=== PATIENT | male | born 1975 | race Caucasian/White ===

== ENCOUNTER 2016-07-15 05:33 | Day surgery (SDC) | payer OTHER ==
[~2016-07-15] VITALS: Ht 180.3 cm; Wt 83.9 kg
[2016-07-15] MEDS ORDERED: BENADRYL25 MG PO (07:53)
[2016-07-15] MEDS ORDERED: FLUTICASONE PRO16 GM NASAL (07:53)
[2016-07-15] MEDS ORDERED: FLOMAX0.4 MG PO (07:53)
[2016-07-15 07:59] VITALS: BP 102/71; Ht 180.3 cm; Wt 83.9 kg
[2016-07-15 08:01] LABS: HEMATOCRIT 41.7 % (42.0-54.0); HEMOGLOBIN 13.9 g/dL (13.5-17.5); MCH 31.7 pg (26.0-34.0); MCHC 33.3 g/dL (31.0-37.0); MEAN PLATELET VOLUME 9.9 fL (7.4-10.4); RBC 4.39 10x6/uL (4.20-6.10); WBC 4.9 10x3/uL (4.8-10.8)
[2016-07-15 08:24] LABS: APTT 30.5 SECONDS (22.8-39.4); INR 1.12 (0.85-1.17); PROTIME 14.3 SECONDS (11.6-15.0)
[2016-07-15 08:32] LABS: ALBUMIN 3.8 g/dL (3.4-5.0); ALKALINE PHOSPHATASE 88 U/L (46-116); ALT (SGPT) 199 U/L (10-68); BILIRUBIN - TOTAL 0.92 mg/dL (0.2-1.3); CALC OSMOLALITY 280 mosm/kg (275-300); CALCIUM 8.8 mg/dL (8.5-10.1); CARBON DIOXIDE 29.9 mmol/L (21.0-32.0); CHLORIDE - SERUM 105 mmol/L (98-107); CREATININE - SERUM 1.1 mg/dL (0.6-1.3); PROTEIN - SERUM 7.3 g/dL (6.4-8.2); SODIUM 142 mmol/L (136-145); UREA NITROGEN 12 mg/dL (7-18); eGFR NON AFRICAN AMERICAN 78 mL/min (90-120)
[2016-07-15 08:34] LABS: GLUCOSE 70 mg/dL (74-106)
[2016-07-15] MEDS ORDERED: HYDROCODONE-APA1 TAB PO (10:07)
--- NOTE | 2016-07-15 19:06 | NUR ---
1255 DRESSED. GIVEN DISCHARGE INSTRUCTION INFO PAACKET INCLUDING RX: NORCO 10/325MG, MED REC., D/C INSTRUCTIONS. CLINIC CLOSED FOR LUNCH UNABLE TO OBTAIN APPT. INFORMED ADC WILL NEED TO CALL TO GET A FOLLOW UP APPT. FOR PT. PT & GUARD VOICED UNDERSTANDING. TO ADC VAN PER WHEELCHAIR BY THIS NURSE. Petrona VIERA R.N.
--- NOTE | 2016-07-16 16:52 | OP ---
PATIENT NAME: ROBERTO COLON MEDICAL RECORD: [id number] :73 LOCATION:D.OPS ADMISSION DATE: SURGEON: NETO STEPHEN MD DATE OF OPERATION: 07/15/2016 Orthopedic Surgery Operative Note PREOPERATIVE DIAGNOSIS: Lisfranc injury to the left foot. POSTOPERATIVE DIAGNOSIS: Lisfranc injury to the left foot. PROCEDURE: Lisfranc ligament reconstruction. SURGEON: Neto Stephen MD ANESTHESIA: General. INTRAOPERATIVE COMPLICATIONS: None. SUMMARY OF PATHOLOGIC FINDINGS: The patient had definite widened interspace consistent with Lisfranc ligament tear. IMPLANTS USED: Arthrex syndesmosis repair system. OPERATIVE SUMMARY IN DETAIL: After obtaining the appropriate preoperative orthopedic surgery consent as well as anesthetic consultation and clearance, the patient was brought to the operating room and placed on the operating table in supine position. After general laryngeal mask was administered, tourniquet was placed about the proximal aspect of the left lower extremity. Left lower extremity was then prepped and draped in routine sterile fashion. The leg was elevated and exsanguinated, tourniquet inflated to 350 mmHg. Under direct fluoroscopic vision, pin was taken through the base of the second metatarsal into the medial cuneiform and this was then overdrilled with the cannulated reamer. Following this, the system was deployed through the metatarsal head, through the cuneiform as seen on x-ray. This was then tightened up and reduced the opening between the first and second metatarsals. Wound was irrigated and closed in usual fashion. Sterile dressings were applied. The patient was placed in an L&U boot. Tourniquet was deflated. The patient was awakened, taken to recovery room in stable condition. All final needle and sponge counts were correct. TRANSINT:[id number] Voice Confirmation ID: [id number] DOCUMENT ID: [id number] NETO STEPHEN MD at 1652 CC: [id number] DICTATION DATE: 07/15/16 1005 AUTOMOBILE BUMPER STRAIGHTENER: 07/15/16 1606 [facility] 07/15/16 [place] [address]
== END 2016-07-15 13:20 ==
LOC: D.OPS 05:33
PROVIDERS: Anesthesiology
DX: S93.325A Dislocation of tarsometatarsal joint of left foot, initial encounter (principal)

== ENCOUNTER 2016-07-22 07:30 | Inpatient (IN) | payer MEDICAID ==
[~2016-07-22] VITALS: Ht 180.3 cm; Wt 81.6 kg
[~2016-07-22 07:30] MED LIST: BENADRYL25 MG PO; FLOMAX0.4 MG PO; FLUTICASONE PRO16 GM NASAL; HYDROCODONE-APA1 TAB PO
[2016-07-22 08:56] LABS: BASOPHILS 0.2 % (0.0-2.0); EOSINOPHILS 0 % (0-7); HEMATOCRIT 40.1 % (42.0-54.0); HEMOGLOBIN 14.2 g/dL (13.5-17.5); IMMATURE GRANULOCYTES 0.2 % (0-5); LYMPHOCYTES 6.5 % (15-50); MCHC 35.4 g/dL (31.0-37.0); MCV 90.3 fL (80.0-100.0); MEAN PLATELET VOLUME 9.3 fL (7.4-10.4); MONOCYTES 11.9 % (2-11); NEUTROPHILS 81.2 % (40-80); PLATELET COUNT 178 10x3/uL (130-400); RBC 4.44 10x6/uL (4.20-6.10); RDW 13.4 % (11.5-14.5); WBC 13.2 10x3/uL (4.8-10.8)
--- NOTE | 2016-07-22 12:25 | NUR ---
1200 PT STATES LEFT FOOT IS REALLY HURTING 7 REQUESTS ANOTHER PAIN PILL. MAR CHECKED. PT INFORMED ONLY 3 HRS HAVE PASSED SINCE LAST PAIN MED. ADVISED @ 1300 WILL CALL FOR AN ADDITIONAL PAIN MED. DRESSING REMOVED FROM LEFT FOOT WITH DRIED BLOOD ON VARIOUS AREAS OF FOOT. FOOT CLEANED PER PT.'S REQUEST. DRIED BLOOD REMOVED WITH WARM WET WASH CLOTHS. THEN FOOT CLEANED WITH CHG WIPES. PRESSURE APPLIED TO LEFT UPPER FOOT PURULENT THICK DRAINAGE OOZED THE SPURTED FROM FOOT WHERE SUTURE IS PRESENT. LEFT FOOT ELEVATED ON 2 PILLOWS WITH AN ICE PACK PLACED ON FOOT NEAR LEG. Petrona VIERA R.N.
[2016-07-22 12:34] VITALS: BP 127/77; BMI 25.1
[2016-07-22] MEDS ORDERED: ULTRAM50 MG PO (12:34)
[2016-07-22 13:14] LABS: APTT 31.2 SECONDS (22.8-39.4); INR 1.13 (0.85-1.17); PROTIME 14.4 SECONDS (11.6-15.0)
[2016-07-22 13:22] LABS: ALBUMIN 2.9 g/dL (3.4-5.0); ALKALINE PHOSPHATASE 84 U/L (46-116); ALT (SGPT) 49 U/L (10-68); BILIRUBIN - TOTAL 0.89 mg/dL (0.2-1.3); CALC OSMOLALITY 266 mosm/kg (275-300); CALCIUM 9.6 mg/dL (8.5-10.1); CARBON DIOXIDE 28.5 mmol/L (21.0-32.0); CHLORIDE - SERUM 96 mmol/L (98-107); PROTEIN - SERUM 8.1 g/dL (6.4-8.2); SODIUM 132 mmol/L (136-145); UREA NITROGEN 14 mg/dL (7-18); eGFR NON AFRICAN AMERICAN 87 mL/min (90-120)
[2016-07-22 13:23] LABS: GLUCOSE 110 mg/dL (74-106)
[2016-07-22 18:27] VITALS: BP 145/75; Ht 180.3 cm; Wt 81.6 kg
--- NOTE | 2016-07-22 20:00 | NUR ---
ASSESSMENT PER FLOWSHEET. DRESSING TO LEFT FOOT C/D/I. ELEVATED ON PILLOW PLACED ICE BAG ON ANKLE. IV PATENT RT AC OF D51/2NS AT 125CC'S/HR SITE CLEAR. PT IN CONTACT ISOLATION. SR UP X2 CALL LIGHT WITHIN REACH. GUARD AT BEDSIDE. SANDWICH TRAY/DRINK/ICE CREAM GIVEN TO PATIENT AND GUARD.
--- NOTE | 2016-07-22 21:09 | NUR ---
C/O PAIN INCISIONAL AREA RATES PAIN LEVEL #5-6. PERCOCET TAB ONE PO GIVEN FOR PAIN CONTROL.
[2016-07-23] VITALS (8 sets, daily range): BP systolic 116–179; BP diastolic 62–74
--- NOTE | 2016-07-23 | NUR ---
RESTING QUIETLY EATING AND DRINKING ICE CREAM AND COKES.
--- NOTE | 2016-07-23 01:31 | NUR ---
C/O PAIN INCISIONAL SITE RATES PAIN LEVEL #5.PERSOCET TAB ONE PO GIVEN FOR PAIN CONTROL.
--- NOTE | 2016-07-23 04:33 | NUR ---
FVUJ=748.2. C/O PAIN INCISIONAL AREA RATES PAIN LEVEL #4-5. PERCOCET TAB ONE PO GIVEN FOR PAIN CONTROL.
[2016-07-23 08:12] LABS: HEMATOCRIT 34.7 % (42.0-54.0); HEMOGLOBIN 11.9 g/dL (13.5-17.5); MCH 31.4 pg (26.0-34.0); MCHC 34.3 g/dL (31.0-37.0); MCV 91.6 fL (80.0-100.0); MEAN PLATELET VOLUME 9.3 fL (7.4-10.4); RBC 3.79 10x6/uL (4.20-6.10); RDW 13.7 % (11.5-14.5); WBC 15.5 10x3/uL (4.8-10.8)
--- NOTE | 2016-07-23 08:45 | NUR ---
Verbalized name and , patient with 24/7 guard at bedside. Contact precautions observed and maintained. Pain to left foot. Left foot mehdi wrap dressing in place, no breakthrough drainage noted. Able to slightly wiggle toes, toes warm and swollen.
--- NOTE | 2016-07-23 20:00 | NUR ---
ASSESSMENT PER FLOWSHEET. DRESSING TO LEFT FOOT C/D/I. ELEVATED ON PILLOWS. IV PATENT RT FOREARM OF D51/2NS AT 50CC'S/HR SITE CLEAR. GUARD AT BEDSIDE 25/11.PT IN CONTACT ISOLATION.
--- NOTE | 2016-07-23 21:30 | NUR ---
REQUESTING PAIN MED RATES PAIN LEVEL #5 PERCOCET TAB ONE PO GIVEN FOR PAIN CONTROL.
--- NOTE | 2016-07-23 23:41 | NUR ---
RESTING QUIETLY WATCHING TV. SR UP X2 CALL LIGHT WITHIN REACH GUARD AT BEDSIDE.
[2016-07-24] VITALS: BP 123/84
--- NOTE | 2016-07-24 01:27 | NUR ---
C/O INCISIONAL PAIN LEFT FOOT. RATES PAIN LEVEL 5. PERCOCET TAB ONE PO GIVEN FOR PAIN CONTROL.
--- NOTE | 2016-07-24 02:28 | NUR ---
RESTING AT THIS TIME DENIES NEEDS
[2016-07-24 04:00] VITALS: BP 123/60
[2016-07-24 05:00] LABS: BASOPHILS 0.1 % (0.0-2.0); EOSINOPHILS 0.4 % (0-7); HEMATOCRIT 34.6 % (42.0-54.0); HEMOGLOBIN 11.9 g/dL (13.5-17.5); IMMATURE GRANULOCYTES 0.3 % (0-5); LYMPHOCYTES 13.7 % (15-50); MCH 31.6 pg (26.0-34.0); MCHC 34.4 g/dL (31.0-37.0); MCV 91.8 fL (80.0-100.0); MEAN PLATELET VOLUME 9.1 fL (7.4-10.4); NEUTROPHILS 78.5 % (40-80); PLATELET COUNT 198 10x3/uL (130-400); RBC 3.77 10x6/uL (4.20-6.10); RDW 13.5 % (11.5-14.5); WBC 13.6 10x3/uL (4.8-10.8)
[2016-07-24 05:22] LABS: CALC OSMOLALITY 270 mosm/kg (275-300); CALCIUM 8.5 mg/dL (8.5-10.1); CARBON DIOXIDE 28.3 mmol/L (21.0-32.0); CHLORIDE - SERUM 97 mmol/L (98-107); GLUCOSE 132 mg/dL (74-106); SODIUM 135 mmol/L (136-145); UREA NITROGEN 11 mg/dL (7-18); VANCOMYCIN - TROUGH 3.5 ug/mL (10.0-20.0); eGFR NON AFRICAN AMERICAN 87 mL/min (90-120)
[2016-07-24 05:29] LABS: C-REACTIVE PROTEIN 28.1 mg/dL (0.0-0.9)
--- NOTE | 2016-07-24 05:30 | NUR ---
MEDS GIVEN PER JUL. C/O PAIN INCISIONAL AREA PERCOCET TAB ONE PO GIVEN FOR PAIN CONTROL. LAB DRAWN FOR VANCOMYCIN TROUGH THEN MED HUNG.
[2016-07-24 06:13] LABS: ERYTHROCYTE SEDIMENTATION RATE 65 mm/hr (0-15)
--- NOTE | 2016-07-24 07:30 | NUR ---
AWAKE ALERT ISOLATION CONT DSG TO LEFT FOOT INTACT IV CONT AT PRESENT.IV CONT AT PRESENT TO RFA.
--- NOTE | 2016-07-24 09:00 | NUR ---
MEDS GIVEN MIGUEL WELLL AT PRESENT.
[2016-07-24 09:09] VITALS: BP 144/69
--- NOTE | 2016-07-24 11:00 | NUR ---
DSG CHG DONE PER WOUND CARE LEFT FOOT SWOLLEN AND KECIA AT PRESENT N/C VOICED AT PRESENT.
--- NOTE | 2016-07-24 13:00 | NUR ---
DSG INTACT TO LEFT FOOT AT PRESENT.
[2016-07-24 13:06] VITALS: BP 113/58
--- NOTE | 2016-07-24 13:20 | NUR ---
WOUND CARE CONSULT: PT IS S/P I&D OF LEFT FOOT (DAY 2). THE INCISION ON TOP OF FOOT 6.5CM X 2CM X 2CM X 1.1CM FROM 6-12 OCLOCK INCISION ON MEDIAL FOOT 1CM X 3CM X 1.8CM X 1.5CM FROM 12-12 OCLOCK THE FOOT IS EDEMATOUS AND RED WITH A MODERATE SEROPURULENT DRAINAGE. THERE IS NO ODOR. THE WOUND BEDS ARE RED AND WOUND EDGES ARE SLIGHTLY MACERATED. CLEANSED WELL WITH WOUND ASSEMBLER KNIFE AND DRIED. PACKED WITH 1/2" IODOFORM GAUZE PACKING, COVERED WITH 4X4S AND ABD PAD. WRAPPED WITH KERLIX AND SECURED WITH EMA WRAP. PT TOLERATED WELL.
--- NOTE | 2016-07-24 15:00 | NUR ---
WATCHING TV QUIETLY GUARD AT BEDSIDE AT PRESENT.
[2016-07-24 16:32] VITALS: BP 145/68
--- NOTE | 2016-07-24 17:00 | NUR ---
WATCHING TV QUIETLY AT PRESENT DENIES ANY NEEDS AT THIS TIME.
[2016-07-24 19:00] VITALS: BP 126/67
--- NOTE | 2016-07-24 19:00 | NUR ---
SLEEPING QUIETLY AT PRESENT N/C VOICED AT PRESENT.
--- NOTE | 2016-07-25 00:24 | NUR ---
ASSESSED AT THE BEGINNING OF THE SHIFT. PT IS ALERT AND ORIENTED, ABLE TO VERBALIZE HIS NEEDS. HE C/O OF NOT GETTING HIS MEDICINE DUE TO A LEAKING IV SITE AND HIS IV WAS MOVED TO THE LEFT FOREARM WITH A 20 GAUGE X'S 1 STICK. HE WAS THEN WORRIED AOBUT GETTING HIS ANTIBOTICS BUT WAS ASSURED THAT ANTIBOTICS WERE GIVEN AT DIFFERENT INTERVALS AND HE WOULD RECEIVE THEM AT THE CORRECT TIMES. HE IS IN ISLOLATION FOR MRSA AND HE HAS A DRESSING TO HIS LEFT FOOT THAT IS CLEAN DRY AND INTACT. THERE IS A DILAUDID TECHNICAL SME FOR PAIN CONTROL WHICH HE IS USING. THE BED IS LOW, RAILS UP X'S 2 WITH THE CALL LIGHT AT HAND AND A URINAL AT THE BEDSIDE.
[2016-07-25 04:00] VITALS: BP 121/71
[2016-07-25 05:33] LABS: HEMATOCRIT 35.5 % (42.0-54.0); MCH 31.3 pg (26.0-34.0); MCHC 33.8 g/dL (31.0-37.0); MCV 92.7 fL (80.0-100.0); MEAN PLATELET VOLUME 9.3 fL (7.4-10.4); RBC 3.83 10x6/uL (4.20-6.10); RDW 13.6 % (11.5-14.5); WBC 11.7 10x3/uL (4.8-10.8)
[2016-07-25 06:04] LABS: CALC OSMOLALITY 273 mosm/kg (275-300); CALCIUM 8.5 mg/dL (8.5-10.1); CARBON DIOXIDE 29.3 mmol/L (21.0-32.0); CHLORIDE - SERUM 99 mmol/L (98-107); CREATININE - SERUM 0.9 mg/dL (0.6-1.3); POTASSIUM - SERUM 3.4 mmol/L (3.5-5.1); SODIUM 137 mmol/L (136-145); UREA NITROGEN 10 mg/dL (7-18); eGFR NON AFRICAN AMERICAN > 90 mL/min (90-120)
[2016-07-25 06:16] LABS: GLUCOSE 113 mg/dL (74-106)
--- NOTE | 2016-07-25 08:32 | NUR ---
AWAKE AND ALERT. ORIENTED X3. NO C/O AT THIS TIME. LUNGS ARE CLEAR BILATERALLY, NO COUGH NOTED. SKIN IS INTACT WITHOUT REDNESS EXCEPT WOUND TO LEFT FOOT, WHICH HAS A DRY INTACT DRESSING IN PLACE. IV TO LEFT FOREARM IS PATNET WITHOUT REDNESS AT INSERTION SITE. DENIES NEEDS. REPORTS GOOD PAIN CONTROL WITH USE OF SYSTEMS SOFTWARE DESIGNER.
[2016-07-25 08:46] VITALS: BP 126/57
--- NOTE | 2016-07-25 10:00 | NUR ---
RESTING QUIETLY IN BED. DENIES NEEDS.
[2016-07-25 11:30] VITALS: BP 120/60
--- NOTE | 2016-07-25 12:30 | NUR ---
LUNCH SERVED IN ROOM. FEEDS SELF. DENIES NEEDS. REPORTS PAIN MANAGEED WELL WITH USE OF CARE ANALYST.
[2016-07-25 16:03] VITALS: BP 118/55
--- NOTE | 2016-07-25 18:07 | NUR ---
ATE MOST OF SUPPER. NO C/O AT THIS TIME. NO CHANGES NOTED. DENIES NEEDS.
[2016-07-25 20:00] VITALS: BP 105/64
--- NOTE | 2016-07-25 23:08 | NUR ---
ASSESSED AT THE BEGINNING OF THE SHIFT. PT IS ALERT AND ORIENTED, ABLE TO VERBALIZE NEEDS. HE HAS A HADOOP JAVA DEVELOPER FOR PAIN CONTROL AND IS DOING WELL WITH IT. WE HAVE HIM IN CONTACT ISOLATION DUE TO MRSA TO HIS LEFT FOOT WOUND. THE DRESSING IS CLEAN DRY AND INTACT. HE IS ABLE TO GO TO THE BATHROOM NEEDED. THE BED IS LOW, RAILS UP X'S 2 WITH THE CALL LIGHT AT HAND.
[2016-07-26] VITALS: BP 119/63
[2016-07-26 04:00] VITALS: BP 122/69
[2016-07-26 05:38] LABS: HEMATOCRIT 35.3 % (42.0-54.0); HEMOGLOBIN 11.8 g/dL (13.5-17.5); MCH 30.8 pg (26.0-34.0); MCHC 33.4 g/dL (31.0-37.0); MCV 92.2 fL (80.0-100.0); MEAN PLATELET VOLUME 9.3 fL (7.4-10.4); RBC 3.83 10x6/uL (4.20-6.10); RDW 13.8 % (11.5-14.5)
[2016-07-26 05:57] LABS: CALC OSMOLALITY 272 mosm/kg (275-300); CALCIUM 8.6 mg/dL (8.5-10.1); CARBON DIOXIDE 29.8 mmol/L (21.0-32.0); CHLORIDE - SERUM 100 mmol/L (98-107); CREATININE - SERUM 0.9 mg/dL (0.6-1.3); GLUCOSE 101 mg/dL (74-106); POTASSIUM - SERUM 3.9 mmol/L (3.5-5.1); SODIUM 137 mmol/L (136-145); UREA NITROGEN 11 mg/dL (7-18); eGFR NON AFRICAN AMERICAN > 90 mL/min (90-120)
[2016-07-26 07:50] VITALS: BP 136/69
--- NOTE | 2016-07-26 08:12 | NUR ---
AWAKE AND ALERT. ORIENTED X3. NO C/O THIS AM. LUNGS ARE CLEAR BILATERALLY, NO COUGH NOTED. SKIN IS INTACT WITHOUT REDNESS EXCEPT WOUNDS TO LEFT FOOT WHICH HAVE A DRY INTACT DRESSING IN PLACE. NEURO CHECKS WNL. IV TO LEFT FOREARM IS PATENT WITHOUT REDNESS AT INSERTION SITE. DENIES NEEDS. LEFT FOOT UP ON PILLOWS.
[2016-07-26] MEDS ORDERED: HYDROCODONE-APA1 TAB PO ×2 (08:55→09:02)
[2016-07-26] MEDS ORDERED: CLEOCIN HCL150 MG PO (08:59)
--- NOTE | 2016-07-26 10:30 | NUR ---
REPORT CALLED TO CHARLINE CRUZ AT [facility]. ALL QUESTIONS ANSWERED.
--- NOTE | 2016-07-26 11:36 | NUR ---
DISCHARGE INSTRUCTIONS GIVEN BOTH VERBALLY AND WRITTEN. ALL QUESTIONS ANSWERED. NEEDED PRESCRIPTIONS SENT WITH PATIENT. DISCHARGED VIA WC. IV TO LEFT FOREARM D/C WITH CATHETER INTACT.
--- NOTE | 2016-07-29 13:10 | OP ---
PATIENT NAME: ROBERTO COLON MEDICAL RECORD: [id number] :73 LOCATION:D.MS [id number] ADMISSION DATE:07/22/16 SURGEON: NETO STEPHEN MD DATE OF OPERATION: 07/22/2016 PREOPERATIVE DIAGNOSIS: Grossly infected left foot, status post Lisfranc repair. POSTOPERATIVE DIAGNOSIS: Grossly infected left foot, status post Lisfranc repair. PROCEDURES: 1. Removal of hardware of the left foot. 2. I&D of the left foot to include skin, subcutaneous tissue, portions of fat, fascia and bone. SURGEON: Neto Stephen MD. ANESTHESIA: General. INTRAOPERATIVE COMPLICATIONS: Essentially none. SUMMARY OF PATHOLOGIC FINDINGS: Upon incising the area where a single stab incision was utilized, gross purulence was noted and further in the operation, the entire tract of the pathway of the Lisfranc TightRope was infected to the stab hole. The previously placed Lisfranc TightRope with both mechanical buttons was removed in order to get full healing. OPERATIVE SUMMARY IN DETAIL: After obtaining the appropriate preoperative orthopedic surgery consents as well as anesthetic consultation, evaluation and clearance, the patient was brought to the operating room and placed on the operating table in supine position. After adequate general laryngeal mask was administered, tourniquet was placed about the proximal aspect of the left lower extremity, though it was not used during this case. Left lower extremity was then prepped and draped in a routine sterile fashion. The single placed suture was removed and the stab incision was elongated and cultures were taken at this point. Copious amounts of purulence was noted. Upon irrigating, it became obvious that this was transosseous tunnel. The small area on the medial aspect of the foot was opened as well and then [id number] irrigation was followed by curettage of the canal that was created for the Lisfranc TightRope repair. The Lisfranc TightRope was removed at this point. Both the lateral and medial sides as well as the FiberWire itself was taken out and further irrigation was utilized until mfgqjlo-uvw-momedlo irrigation was achieved. After substantial irrigation was done, the foot was packed with half-inch iodoform gauze. Sterile dressings were applied. The patient was awakened, taken to recovery room in stable condition. All final needle and sponge counts were correct. TRANSINT:[id number] Voice Confirmation ID: [id number] DOCUMENT ID: [id number] OPERATIVE REPORT [id number] ROBERTO COLON MD, NETO BLOOM at 1310 CC: [id number] DICTATION DATE: 07/25/16 0947 COMMODITY SPECIALIST: 07/25/16 1031 DIS IN 07/26/16 [facility] [address] [id number]
== END 2016-07-26 11:37 | disposition home or self-care (01) | DRG 863 ==
LOC: D.OPS 07:30 → D.SDCHOLD 07:30 → D.OPS 11:08 → D.MS 11:08 → D.SDCHOLD 11:08 → D.MS 18:16
PROVIDERS: Anesthesiology; Student in an Organized Health Care Education/Training Program; ADMIT Orthopaedic Surgery
PROC: 0YPB0YZ Removal of Other Device from Left Lower Extremity, Open Approach (ICD-10-PCS; principal; 2016-07-22 15:15)
DX: T81.4XXA Infection following a procedure, initial encounter (principal); M86.9 Osteomyelitis, unspecified; B95.62 Methicillin resistant Staphylococcus aureus infection as the cause of diseases classified elsewhere; B19.20 Unspecified viral hepatitis C without hepatic coma; S93.325D Dislocation of tarsometatarsal joint of left foot, subsequent encounter; X58.XXXD Exposure to other specified factors, subsequent encounter